=== PATIENT | female | born 1950 | race Two or more races ===

== ENCOUNTER → 2017-07-17 | Outpatient (CLI) | payer OTHER | LOC: SBRMNEURO 21:00 | PROVIDERS: ATTEND Psychiatry & Neurology Sleep Medicine | DX: G47.33 Obstructive sleep apnea (adult) (pediatric) (principal); G47.31 Primary central sleep apnea; G47.52 REM sleep behavior disorder ==

== ENCOUNTER → 2017-08-12 | Outpatient (CLI) | payer OTHER | LOC: SBRMNEURO 21:00 | PROVIDERS: ATTEND Psychiatry & Neurology Sleep Medicine | DX: G47.33 Obstructive sleep apnea (adult) (pediatric) (principal); G47.31 Primary central sleep apnea; G47.61 Periodic limb movement disorder; G47.52 REM sleep behavior disorder ==

== ENCOUNTER → 2017-12-22 | Outpatient (CLI) | payer OTHER | LOC: SBRMNEURO 22:50 | PROVIDERS: ATTEND Psychiatry & Neurology Sleep Medicine | DX: G47.39 Other sleep apnea (principal); G47.34 Idiopathic sleep related nonobstructive alveolar hypoventilation ==

== ENCOUNTER → 2018-12-12 | Outpatient (CLI) | payer OTHER | LOC: BHLMT 11:30 | PROVIDERS: ATTEND Internal Medicine Interventional Cardiology | DX: I42.9 Cardiomyopathy, unspecified (principal); I25.10 Atherosclerotic heart disease of native coronary artery without angina pectoris | CPT/HCPCS: 93306-PO ==

== ENCOUNTER → 2019-02-20 | Outpatient (CLI) | payer OTHER | LOC: FIMAGING 13:27 ==